=== PATIENT | female | born 1995 | race Caucasian/White ===

== ENCOUNTER 2017-07-30 16:01 | Emergency (ER) | payer OTHER ==
--- NOTE | 2017-07-30 18:34 | RAD ---
Indication: Struck head on a rock. No loss of consciousness. Memory loss. Comparison: No relevant prior exams available on the [facility] [place] PACS for comparison. Technique: Noncontrast CT vertex of skull through foramen magnum. Report: Unremarkable cerebral sulci, ventricles, and basal cisterns. Negative for jackson matter white matter obscuration, intra or extra-axial hemorrhage, or mass effect. Unremarkable orbital contents. Mild anterior midline and LEFT para midline scalp swelling and few punctate foci of subcutaneous emphysema. Negative for calvarial or skull base fracture. Partially visualized maxillary sinuses are remarkable for mucosal thickening and fluid levels. Remainder of the paranasal sinuses and mastoid air spaces are clear. IMPRESSION: 1. Mild anterior midline and LEFT para midline scalp swelling and few punctate foci of subcutaneous emphysema. Correlate for scalp laceration. 2. No CT evidence for fracture or traumatic brain injury.
--- NOTE | 2017-07-30 18:59 | ED ---
Head Injury - HPI Summary HPI Summary: Complains of head injury and laceration to forehead after fall today. Patient states he fell getting out of the car and hit her head on a rock. Patient fully alert and oriented. Denies LOC, MCGRATH, N/V, vision change, neck pain, trauma to tongue, teeth, nose, issues remembering or focusing. Also denies pain in any extremity, chest wall, back, abdomen. Medical history is none. Positive EtOH, patient admits to around 8 drinks. No anti-coag - History Of Current Complaint Chief Complaint: EDHeadInjury Stated Complaint: HEAD LAC Time Seen by Provider: 07/30/17 16:58 Hx Obtained From: Patient Mechanism Of Injury: Fall From A Standing Position Pain Intensity: 0 - Allergies/Home Medications Allergies/Adverse Reactions: Allergies Allergy/AdvReac Type Severity Reaction Status Date / Time No Known Allergies Allergy Verified 07/30/17 16:13 Home Medications: Home Medications Control 1 tab PO DAILY 07/30/17 [History Confirmed 07/30/17] PMH/Surg Hx/FS Hx/Imm Hx Infectious Disease History: No Infectious Disease History: Denies: Traveled Outside the [place] in Last 30 Days - Social History Alcohol Use: Weekly Alcohol Amount: 8 drinks today Substance Use Type: Reports: Marijuana Substance Use Comment - Amount & Last Used: 2 months ago Smoking Status (MU): Light Every Day Tobacco Smoker Review of Systems Constitutional: Negative Eyes: Negative ENT: Negative Cardiovascular: Negative Respiratory: Negative Gastrointestinal: Negative Genitourinary: Negative Musculoskeletal: Negative Skin: Negative Neurological: Negative Psychological: Normal All Other Systems Reviewed And Are Negative: Yes Physical Exam - Summary Physical Exam Summary: Small .5cm by 0.25 cm laceration, very superficial, at top of forehead. No indication for suturing. Mild contusion. No evidence of deformity to head. No evidence of trauma to the lips, tongue, teeth, nose, face. Full range of motion of neck and jaw. Neuro exam normal Triage Information Reviewed: Yes Vital Signs On Initial Exam: Initial Vitals Temp Pulse Resp BP Pulse Ox 98.5 F 91 16 101/72 99 07/30/17 16:13 07/30/17 16:13 07/30/17 16:13 07/30/17 16:13 07/30/17 16:13 Vital Signs Reviewed: Yes Appearance: Positive: Well-Appearing Skin: Positive: Warm Head/Face: Positive: Normal Head/Face Inspection Eyes: Positive: Normal ENT: Positive: Normal ENT inspection Neck: Positive: Supple Respiratory/Lung Sounds: Positive: Clear to Auscultation Cardiovascular: Positive: Normal Abdomen Description: Positive: Nontender Musculoskeletal: Positive: Normal Neurological: Positive: Normal Psychiatric: Positive: Normal AVPU Assessment: Alert - [place] Coma Scale Best Eye Response: 4 - Spontaneous Best Motor Response: 6 - Obeys Commands Best Verbal Response: 5 - Oriented Coma Scale Total: 15 Diagnostics - Vital Signs Vital Signs Temp Pulse Resp BP Pulse Ox 07/30/17 16:13 98.5 F 91 16 101/72 99 - Laboratory Lab Results: Lab Results 07/30/17 Range/Units 17:32 Beta HCG, Quant < 0.60 mIU/mL Serum Alcohol 235 H (<10) mg/dL Lab Statement: Any lab studies that have been ordered have been reviewed, and results considered in the medical decision making process. - CT brain CT Interpretation: No Acute Changes CT Interpretation Completed By: Radiologist Head Injury Course/Dx Course Of Treatment: Complains of head injury from fall, with patient hit head on rocks. Denies LOC, MCGRATH, N/V, vision change, neck pain, dizziness, trouble remembering or focusing (in contrast to triage note patient denies trouble not remembering. States her friend called and gave that information). Positive EtOH. Neuro exam normal. CT brain unremarkable. Despite EtOH level Patient clinically sober, answers coherently and appropriately, able to ambulate without any observable defect. released into the care of her friend who denies EtOH consumption who will be driving patient HOME - Diagnoses Provider Diagnoses: Head injury Discharge - Sign-Out/Discharge Documenting (check all that apply): Discharge/Admit/Transfer - Discharge Plan Condition: Stable Disposition: HOME Patient Education Materials: Concussion (ED), Head Injury (ED) Referrals: [facility] - MRAlvin [Primary Care Provider] - Additional Instructions: Follow-up with primary care. Return to the ED for any new or worsening symptoms - Billing Disposition and Condition Condition: STABLE Disposition: HOME
[2017-07-30 19:13] VITALS: BP 123/79
== END 2017-07-30 19:14 | disposition home or self-care (01) ==
LOC: ED 16:01
DX: S01.81XA Laceration without foreign body of other part of head, initial encounter (principal); W19.XXXA Unspecified fall, initial encounter; Y92.9 Unspecified place or not applicable; F17.200 Nicotine dependence, unspecified, uncomplicated
CPT/HCPCS: 36415; 70450; 80320; 84702; 99282; G0480